=== PATIENT | female | born 1960 | race Caucasian/White ===

== ENCOUNTER 2021-05-26 12:00 | Emergency (ER) | payer SELFPAY ==
[2021-05-26 12:01] VITALS: BP 134/73; PULSE 74; RESP 16; TEMP 36.1; O2SAT 98; BMI 32.2
--- NOTE | 2021-05-26 12:14 | CT_ITS ---
STUDY: CT ABDOMEN AND PELVIS WITH CONTRAST REASON FOR EXAM: Female, 60 years old. Lower abdominal pain. RADIATION DOSAGE (If Supplied By Facility): CTDIvol = ( 16.62 ) mGy, DLP = ( 1043.20 ) mGycm TECHNIQUE: Transaxial images were obtained from the dome of the diaphragm to the symphysis pubis without oral contrast. IV 100mL Isovue-370 was administered. Sagittal and coronal images were reconstructed. Individualized dose optimization techniques were used for this CT. COMPARISON: None. FINDINGS: The visualized lung bases are unremarkable. The visualized portions of the heart are within normal limits. Mild fatty infiltration of the liver. No focal lesion is seen in the liver. Normal gallbladder and extrahepatic biliary system. Normal spleen. Normal pancreas. Normal bilateral adrenal glands. Normal right kidney. Normal left kidney. Normal visualized stomach. Normal caliber small bowel loops. Duodenal diverticulum measuring about 3 cm. Short segment of inflammatory changes and thickening of the sigmoid colon with adjacent diverticula consistent with acute diverticulitis. No evidence of drainable abscess. No free air is seen. The appendix is not definitely identified. There is diffuse atherosclerotic calcification of the abdominal aorta with elongation and tortuosity, but without a demonstrated aneurysm. Normal inferior vena cava. Normal retroperitoneum. Normal urinary bladder. Small umbilical hernia with mild bulging of part of the transverse colon. Small left ventral hernia containing fat. CT/Abdomen/Pelvis W IV Cont ONLY IMPRESSION: 1. Focal acute diverticulitis of the sigmoid colon. No drainable abscess is seen. 2. Small umbilical hernia with mild bulging of part of the transverse colon. 3. Duodenal diverticulum. Electronically Signed: Tae Hutchins, at 13:34 EST Tel , Service support ,
--- NOTE | 2021-05-26 12:15 | ED.VIS.GI ---
HPI HPI - GI History of Present Illness Chief Complaint: Abd Pain Informant: patient Narrative Narrative: Patient presents with lower abdominal cramping pain that started last evening. She has had nausea with it when it is bad but is not nauseated now. No vomiting. She had some soft bowel movements yesterday but no blood. No fevers or chills. Patient has been having intermittent abdominal symptoms for 6 months. But they vary dramatically. She will occasionally have nausea occasionally constipation occasionally diarrhea occasionally cramps. However she normally does not get this lower abdominal cramping is bad as she had it. This did occur after a meal of pork sauerkraut and a lot of food for New Year's. It still waxing and waning but not overall improving. Her concern is that she had perforated diverticulum 19 years ago. This required emergency surgery. She had an ostomy of it for about 4 months. It has been a while since she had a colonoscopy. Nothing specifically makes symptoms better or worse. [facility] Medical History (Updated 05/26/21 @ 13:[address] Carlos Atwood MD) Diabetes High cholesterol HTN (hypertension) Home Medications metoprolol tartrate 100 mg PO BID 02/28/14 [History Last Taken Unknown] amoxicillin-pot clavulanate [Augmentin] 1 tab PO BID #20 tab 05/26/21 [Rx Last Taken Unknown] aspirin 81 mg PO DAILY 05/26/21 [History Last Taken Unknown] losartan 25 mg PO DAILY 05/26/21 [History Last Taken Unknown] metformin 500 mg PO DAILY 05/26/21 [History Last Taken Unknown] ondansetron 4 mg PO Q8H PRN #10 tab 05/26/21 [Rx Last Taken Unknown] rosuvastatin 20 mg PO DAILY 05/26/21 [History Last Taken Unknown] Allergy/AdvReac Type Severity Reaction Status Date / Time No Known Allergies Allergy Verified 05/26/21 12:04 Surgical History (Updated 05/26/21 @ 12:28 by Patricio Bowens) History of colon surgery Social History Smoking Status: Never smoker ROS ROS ED Constitutional Constitutional ED: Denies chills or fever(s) ENT ENT ED: Denies rhinorrhea or sore throat Cardiovascular Cardiovascular: Denies chest pain or palpitations Respiratory/Chest Respiratory/Chest: Denies cough, dyspnea or sputum Gastrointestinal Gastrointestinal: Reports abdominal pain, diarrhea and nausea; Denies constipation, melena or vomiting Genitourinary Genitourinary ED: Denies dysuria, hematuria or urinary frequency Musculoskeletal Musculoskeletal: Denies back pain Integumentary Denies rash Neurologic Neurologic: Denies headache(s) or weakness Psychiatric Psychiatric: Reports depression Endocrine Endocrinology: Denies polydipsia or polyuria Hematologic/Lymphatic Hematologic/Lymphatic: Reports other Details: Patient is on no blood thinners. No aspirin. ; Denies easy bleeding or easy bruising Allergic/Immunologic Allergic/Immunologic ED: Denies mouth swelling or urticaria EXAM Physical Exam Const Vital Signs: 05/26/21 12:01 05/26/21 12:53 Temperature 97.0 F L Temperature Source Temporal Pulse Rate 74 89 Respiratory Rate 16 16 Blood Pressure 134/73 H 120/80 Blood Pressure Mean 93 93 Pulse Ox 98 97 Oxygen Delivery Method Room Air Room Air Positive well nourished and well developed General Appearance ED: well developed and NAD HEENT Reports moist mucous membranes Eyes General Eye ED: Negative for pale conjunctiva or scleral icterus Neck no JVD Resp normal respiratory effort and clear to auscultation bilaterally Cardio regular rate and regular rhythm GI non-distended GI Narrative: Very minimal tenderness across lower abdomen. Hard to define one side versus the other versus midline. This is very mild. There is no guarding. No rebound. No mass felt. Auscultation: normoactive bowel sounds Palpation: soft Back/Spine no CVA tenderness Extremity full ROM General Extremety ED: Negative for tenderness Neuro Sensorium / Orientation: alert Psych mental status grossly normal Skin no wounds General Skin Exam: Negative for jaundice Lesions: no lesions Rashes: no rashes MDM MDM MDM Narrative Medical decision making narrative: Patient's urine is clean. CBC is actually normal. Electrolytes show no marked abnormalities. BUN to creatinine ratio is minimally elevated. She was given some IV fluids. Glucose is minimally elevated at 128. CT scan did show a focal area of diverticulitis without perforation or abscess. Patient will be started on Augmentin as monotherapy. But I also talked with her about very bland diet. She should go to liquids here for a day or 2. And then very slowly increase the diet. If she develops worsening pain, fevers, vomiting or other concerns she should return. She states she thinks Tylenol will manage her pain just fine. Lab Data Attestation: I reviewed the patient's lab results. Labs: Laboratory Results - last 24 hr 05/26/21 05/26/21 05/26/21 12:20 12:45 12:45 WBC 9.6 RBC 4.31 Hgb 13.4 Hct 39.9 MCV 92.6 MCH 31.1 MCHC 33.6 RDW Std Deviation 39.8 RDW Coeff of Mitchel 11.7 Plt Count 265 MPV 9.2 Immature Gran % (Auto) 0.100 Neut % (Auto) 73.9 H Lymph % (Auto) 14.8 L Wheeler % (Auto) 10.6 H Eos % (Auto) 0.5 Baso % (Auto) 0.1 Absolute Neuts (auto) 7.1 Absolute Lymphs (auto) 1.42 Nucleated RBC % 0 Sodium 138 Potassium 4.2 Chloride 106 Carbon Dioxide 27.0 Anion Gap 5 BUN 13 Creatinine 0.59 Estim Creat Clear Calc 71.01 Est GFR (MDRD) Af Amer 132 Est GFR (MDRD) Non-Af 109 BUN/Creatinine Ratio 22.0 H Glucose 128 H Calcium 9.5 Urine Color Straw Urine Clarity Clear Urine pH 6.0 Ur Specific [place] 1.010 Urine Protein Negative Urine Glucose (UA) Normal Urine Ketones Negative Urine Occult Blood 10 H Urine Nitrite Negative Urine Bilirubin Negative Urine Urobilinogen Normal Ur Leukocyte Esterase Negative Urine RBC 0 SEEN Urine WBC 0 SEEN Ur Squamous Epith Cells 0-5 SEEN Urine Bacteria 0 SEEN Urine Mucus 0 SEEN Radiography Diagnostic Testing: Clinical Impression(s) from Imaging Studies Abdomen/Pelvis CT 05/26/21 12:14 IMPRESSION: 1. Focal acute diverticulitis of the sigmoid colon. No drainable abscess is seen. 2. Small umbilical hernia with mild bulging of part of the transverse colon. 3. Duodenal diverticulum. Electronically Signed: Tae Hutchins, at 13:34 EST Tel , Service support , Discharge Plan Triage Chief Complaint: Abd Pain ED Provider: Carlos tAwood Dx/Rx/DC Orders Clinical Impression: Acute diverticulitis Instructions: ED Diverticulitis Prescriptions: New amoxicillin-pot clavulanate [Augmentin] 875-125 mg tablet 1 tab PO BID Qty: 20 RF: 0 ondansetron 4 mg tablet,disintegrating 4 mg PO Q8H PRN (Reason: nausea and vomiting) Qty: 10 RF: 0 No Action metoprolol tartrate 100 MG tablet 100 mg PO BID RF: 0 aspirin 81 mg tablet,delayed release (DR/EC) 81 mg PO DAILY RF: 0 metformin 500 mg tablet 500 mg PO DAILY RF: 0 losartan 25 mg tablet 25 mg PO DAILY RF: 0 rosuvastatin 20 mg tablet 20 mg PO DAILY RF: 0 Primary Care Provider: Ranjeet Lira Referrals: Ranjeet Lira DO [Primary Care Provider] - 3-5 Days if not improving Disposition Disposition: Home, Self Care
[2021-05-26 12:52] LABS: Absolute Lymphocyte Count 1.42 X10^3/uL (0.83-4.51); Absolute Neutrophil Count 7.1 X10^3/uL (2.0-7.7); Basophil# 0.01 X10^3/uL; Basophil% 0.1 % (0-1); Eosinophil# 0.05 X10^3/uL; Eosinophils% 0.5 % (0-5); Hematocrit 39.9 % (37-47); Hemoglobin 13.4 g/dL (12.0-15.0); Lymphocyte # 1.42 X10^3/ul (0.83-4.51); Lymphocyte % 14.8 % (19-41); Mean Corp Hgb Conc 33.6 g/dL (32-36); Mean Corpuscular Hgb 31.1 pg (27.0-32.0); Mean Corpuscular Volume 92.6 fL (81-99); Mean Platelet Vol. 9.2 fl (6.2-12.0); Monocyte# 1.02 X10^3/uL; Monocyte% 10.6 % (0-10); NRBC Flagged by Analyzer 0 % (0-5); Neutrophil # 7.07 X10^3/uL (2.7-7.7); Neutrophil % 73.9 % (47-70); Platelet Count 265 K/mm3 (150-450); RBC Distribution Width CV 11.7 % (11.6-14.6); RBC Distribution Width SD 39.8 fl (35.1-43.9); Red Blood Count 4.31 M/mm3 (4.2-5.4); White Blood Count 9.6 K/mm3 (4.4-11.0)
[2021-05-26 12:53] VITALS: BP 120/80; PULSE 89; RESP 16; O2SAT 97
[2021-05-26 12:56] LABS: Bacteria 0 SEEN /hpf (None Seen); Mucous, Urine 0 SEEN /hpf (<or=2+); Red Blood Cells-Urine 0 SEEN /hpf (0-5); White Blood Cells 0 SEEN /hpf (0-5)
[2021-05-26 12:58] LABS: Color, Urine Straw (Yellow); Glucose, Dipstick Normal (Normal); Ketone-Dipstick Negative (Negative); Leukocyte Esterase-Dipstick Negative /ul (Negative); Nitrite-Dipstick Negative (Negative); Occult Blood-Urine 10 /ul (Negative); Protein-Dipstick Negative (Negative); Urine Bilirubin Dipstick Negative (Negative); Urine Clarity Clear (Clear); Urine Urobilinogen Normal (Normal)
[2021-05-26 13:05] LABS: Squamous Epithelial Cells - UA 0-5 SEEN /hpf (5-10)
[2021-05-26 13:07] LABS: Anion Gap 5 (5-15); BUN 13 mg/dL (7-18); Calcium,Total 9.5 mg/dL (8.5-10.1); Chloride 106 mmol/L (98-107); Creatinine, Serum 0.59 mg/dL (0.55-1.02); EST Glomerular Filtration Rate 109 mL/min (>60); Est Glom Filt Rate - Afr Amer 132 mL/min (>60); Estimated Creatinine Clearance 71.01 ml/min; Glucose 128 mg/dL (74-106); Potassium 4.2 mmol/L (3.5-5.1); Sodium Level 138 mmol/L (136-145)
[2021-05-26 14:15] VITALS: BP 126/73; PULSE 70; RESP 16; O2SAT 98
[2021-05-26] MEDS: Amox/Clavulanate 875 MG Tablet PO (14:35)
== END 2021-05-26 14:36 | disposition home or self-care (01) ==
PROVIDERS: Emergency Provider Emergency Medicine; PCP Preventive Medicine Occupational Medicine
DX: K57.32 Diverticulitis of large intestine without perforation or abscess without bleeding (principal); E11.9 Type 2 diabetes mellitus without complications; E78.00 Pure hypercholesterolemia, unspecified; I10 Essential (primary) hypertension; Z79.82 Long term (current) use of aspirin; Z79.899 Other long term (current) drug therapy; Z79.84 Long term (current) use of oral hypoglycemic drugs
CPT/HCPCS: 74177; 80048; 81001; 85025; 96360; 99283; J7030; Q9967; A4216

== ENCOUNTER 2024-07-01 07:34 | Day surgery (SDC) | payer MEDICARE, SELFPAY ==
--- NOTE | 2024-06-30 13:17 | PAT.ANE_ITS ---
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 When Was Last Pacemaker Check QUESTION #4 FULL TEXT: You/Your Family Experience fever (hyperthermia) with Anesthesia Last Oral Intake Last Oral intake: Last Oral Intake NPO since Meds taken in AM with sips of water? 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 Female Yes 06/30/24 10:29 HX of Motion Sickness No 06/30/24 10:29 HX of N/V After Surgery No 06/30/24 10:29 Non-Smoker Yes 06/30/24 10:29 Duration of Surgery greater No 06/30/24 10:29 than 60 minutes Number of Risk Factors 2 06/30/24 10:29 PONV Score Moderate Risk 06/30/24 10:29 Height & Weight Height & Weight: Anesthesia: Height & Weight Height 5 ft 03/25/24 10:50 Respiratory Assessment Respiratory Assessment - racking machine operator: Respiratory Tract Infection Hx - racking machine operator Hx Respiratory Tract Infection No 06/30/24 10:29 STOP Sleep Apnea STOP Sleep Apnea - racking machine operator: STOP Sleep Apnea - racking machine operator Hx Hypertension Yes: CONTROLLED WITH MED 06/30/24 10:29 Hx Sleep Apnea Yes 06/30/24 10:29 CPAP Yes: NONCOMPLIANT FOR 8-10 06/30/24 10:29 YRS BIPAP No 06/30/24 10:29 Do you snore loudly (louder than talking or can be heard Do you often feel tired/ fatigued/ sleepy during daytime? Has anyone observed you stop breathing during sleep? STOP Results Positive 06/30/24 10:29 QUESTION #5 FULL TEXT : Do you snore loudly (louder than talking or can be heard through closed doors)? 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 Specify any problems Hx of Preganancy in last 3 No 06/30/24 10:29 Months Nurse Filling Out Transfusion DSCHRIBER 06/30/24 10:29 & Questions: Date: 06/30/24 06/30/24 10:29 Time: 10:32 06/30/24 10:29 Patient unable to answer at this time (ie. confused, unrespo /Reproduction History /Reproductive History - racking machine operator: /Reproductive Hx- racking machine operator Hx Now No 06/30/24 10:29 Gestational Age (in weeks): EDC: Hx Hx Para Hx Section SAB No 06/30/24 10:29 [facility] Medical History (Updated 06/30/24 @ 10:42 by Quynh Slade) Wears glasses Wears dentures Post-menopausal Depression Back pain History of diverticulitis CPAP (continuous positive airway pressure) dependence Non-smoker Shortness of breath on exertion Leg cramps History of stress test History of irregular heartbeat Hx of fracture of arm Family history of malignant neoplasm of colon in father Personal history of colonic polyps Encounter for colonoscopy following colon polyp removal Umbilical hernia Hyperlipemia Hypertension High cholesterol Diabetes Home Medications ?Medication ?Instructions ?Recorded ?Last Taken ?Type metformin 500 mg tablet 500 mg PO BID 05/26/2106/29 History blood-glucose meter (Accu-Chek #1 ea 09/08/23 Unknown Rx Guide Glucose Meter) psyllium husk 0.4 gram capsule 0.4 g PO BID 09/08/23 U nknown History (Daily Fiber) blood sugar diagnostic (Accu-Chek #100 ea 03/24/24 Unk nown Rx Guide test strips) metoprolol succinate 100 mg 100 mg PO BID #180 tabs 10 /30/24 Unknown Rx tablet,extended release 24 hr rosuvastatin 20 mg tablet 20 mg PO DAILY #90 tabs 02/25 Unknown Rx Allergy/AdvReac Type Severity Reaction Status Date / Time No Known Allergies Allergy Verified 06/30/24 10:26 Family History (System 06/29/24 @ 05:54 by Shonna Paredes) Father Colon cancer, Onset Age: 58 Epilepsy Mother Anesthesia complication CVA (cerebral vascular accident) Heart disease Asthma Osteoporosis Brother Asthma Diabetes Hypertension Hyperlipidemia Sister Diabetes Hypertension Hyperlipidemia Sister Diabetes Hypertension Hyperlipidemia Sister Thyroid disorder Surgical History (Updated 06/30/24 @ 10:42 by Quynh Slade) Hx of right cataract extraction Hx of left cataract extraction Hx of colonoscopy History of colostomy reversal Hx of colectomy H/O cervical polypectomy H/O umbilical hernia repair Social History (System 06/29/24 @ 05:54 by Shonna Paredes) adopted: No household members: none current occupational status: employed current occupation: [employer] at [employer] pets and animals: No Smoking Status: Never smoker Electronic Cigarette Use: not used how long ago did patient quit smoking: rare use as teenager alcohol intake: current alcohol intake frequency: holidays/special occasions only substance use type: does not use caffeine: Yes (2) Type: carbonated beverages and tea frequency: 1-2 times per week do you feel safe at home: Yes Audit: Pertinent Findings Pertinent Findings EKG Perinent findings: 03/24/2024 sinus rhythm 71 bpm low voltage precordial leads anterior infarct age undetermined negative T waves in the anterior septal leads Additional pertinent findings: The 03/24/2024 EKG was abnormal with negative T waves no old EKG to compare should evaluate on day of procedure make sure patient is not experiencing any symptoms of cardiac ischemia or symptoms that has reduced her physical activity Recommendation Anesthesia Recommendation Anesthesia recommendation: OPTIMIZED for anesthesia
[2024-07-01] VITALS (8 sets, daily range): BP systolic 99–116; BP diastolic 56–84; PULSE 70–91; RESP 16–18; TEMP 36.6–37.1; O2SAT 94–97; BMI 30.5
--- NOTE | 2024-07-01 08:01 | PCM.HP.STD ---
[facility] - General General Date of Admission: 07/01/24 Date of Service: 07/01/24 Chief Complaint: Personal history of polyps HPI Narrative DAXA THAKUR, is a 63 F who presents today for endoscopic evaluation and surveillance of history of colon polyps. She had a colonoscopy approximately 5 years ago and oral pill and it was normal at that time. Prior colonoscopies did show polyps. At this time she is stable with no complaints. [facility] Medical History Wears glasses Wears dentures Post-menopausal Depression Back pain History of diverticulitis CPAP (continuous positive airway pressure) dependence Non-smoker Shortness of breath on exertion Leg cramps History of stress test History of irregular heartbeat Hx of fracture of arm Family history of malignant neoplasm of colon in father Personal history of colonic polyps Encounter for colonoscopy following colon polyp removal Umbilical hernia Hyperlipemia Hypertension High cholesterol Diabetes Home Medications ?Medication ?Instructions ?Recorded ?Last Taken ?Type metformin 500 mg tablet 500 mg PO BID 05/26/21 06/29/24 History blood-glucose meter (Accu-Chek #1 ea 09/08/23 Unknown Rx Guide Glucose Meter) psyllium husk 0.4 gram capsule 0.4 g PO BID 09/08/23 Unknown History (Daily Fiber) blood sugar diagnostic (Accu-Chek #100 ea 03/24/24 Unknown Rx Guide test strips) metoprolol succinate 100 mg 100 mg PO BID #180 tabs 03/24/24 07/01/24 Rx tablet,extended release 24 hr rosuvastatin 20 mg tablet 20 mg PO DAILY #90 tabs 03/24/24 06/30/24 Rx Allergy/AdvReac Type Severity Reaction Status Date / Time No Known Allergies Allergy Verified 07/01/24 07:54 Family History Father Colon cancer, Onset Age: 58 Epilepsy Mother Anesthesia complication CVA (cerebral vascular accident) Heart disease Asthma Osteoporosis Brother Asthma Diabetes Hypertension Hyperlipidemia Sister Diabetes Hypertension Hyperlipidemia Sister Diabetes Hypertension Hyperlipidemia Sister Thyroid disorder Surgical History Hx of right cataract extraction Hx of left cataract extraction Hx of colonoscopy History of colostomy reversal Hx of colectomy H/O cervical polypectomy H/O umbilical hernia repair Social History adopted: No household members: none current occupational status: employed 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 [email or web address] pets and animals: No Smoking Status: Never smoker Electronic Cigarette Use: not used how long ago did patient quit smoking: rare use as teenager alcohol intake: current alcohol intake frequency: holidays/special occasions only substance use type: does not use caffeine: Yes (2) Type: carbonated beverages and tea frequency: 1-2 times per week do you feel safe at home: Yes ROS Constitutional Constitutional: Denies fatigue, fever(s), poor appetite, weight gain or weight loss Gastrointestinal Gastrointestinal: Denies belching, bloating, change in bowel habits, change in stool character, chewing difficulty, coffee ground emesis, constipation, cramping, diarrhea, dyspepsia, dysphagia, early satiety, excessive flatus, fecal incontinence, heartburn, hematemesis, hematochezia, hemorrhoids, loose stools, melena, nausea, odynophagia, rectal bleeding, tenesmus, vomiting or weight changes Physical Exam Const alert, oriented x3, no apparent distress and healthy appearing General Appearance: cooperative GI normal to inspection, nondistended, normoactive bowel sounds, soft to palpation, non-tender and non-distended Percussion: normal to percussion Rectal Exam: deferred Assessment & Plan Assessment/Plan (1) Encounter for screening for malignant neoplasm of colon: PLAN: She was explained alternatives to risk benefits include not withstanding bleeding, infection, sepsis, perforation, need for return to . She will have an ASA of 3.
--- NOTE | 2024-07-01 08:31 | PRE.ANES_ITS ---
ASA Classification* ASA Classification ASA Classification: 3 Assessment & Plan Anesthesia* Anesthesia Assessment Anesthesia Assessment: Discussed sedation and/or anesthesia options, risks, benefits, and alternatives with patient/parents/legal guardian/POA. Questions invited. The patient/parents/legal guardian/POA seems to understand and agrees to proceed with anesthesia plan. Reviewed the physical assessment, medical history, allergy history and patient home medications list prior to surgery/procedure/anesthetic and documented any changes. Performed airway and anesthesia risk assessments. Anesthesia Type Anesthesia Type: MAC History Source History Obtained from:: Patient and Chart Anesthesia Focused Assessment* Temperature: 97.8 F Pulse Rate: 91 Blood Pressure: 116/84 Respiratory Rate: 16 Pulse Ox: 97 Oxygen Delivery Method: Room Air Airway Assessment Mouth opens: >3 cm Mallampati Score: II Teeth Condition: Dentures and Full Neck Range of motion (ROM): Full ROM Focused Labs Anesthesia Preop lab: CBC WBC 6.5 K/mm3 (4.4-11.0) 03/23/24 08:04 03/23/24 RBC 4.33 M/mm3 (4.2-5.4) 03/23/24 08:04 03/23/24 Hgb 13.6 g/dL (12.0-15.0) 03/23/24 08:04 03/23/24 Hct 41.9 % (37-47) 03/23/24 08:04 03/23/24 Plt Count 231 K/mm3 (150-450) 03/23/24 08:04 03/23/24 CHEMISTRY Potassium 4.1 mmol/L (3.5-5.1) 03/23/24 08:04 03/23/24 Sodium 138 mmol/L (136-145) 03/23/24 08:04 03/23/24 BUN 17 mg/dL (7-18) 03/23/24 08:04 03/23/24 Creatinine 0.71 mg/dL (0.55-1.02) 03/23/24 08:04 03/23/24 Glucose 143 mg/dL (74-106) H 03/23/24 08:04 03/23/24 TSH 0.957 uIU/mL (0.358-3.740) 03/23/24 08:04 02/24 02/16 COAG Pre-Assessment Diagnosis/Proposed Procedure Planned Operative Procedure(s): CSCOPE OA Anesthesia History 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 When Was Last Pacemaker Check QUESTION #4 FULL TEXT: You/Your Family Experience fever (hyperthermia) with Anesthesia Last Oral Intake Last Oral intake: Last Oral Intake NPO since 04:00 07/01/24 08:02 Meds taken in AM with sips of water? Meds patient instructed to take am of surgery PONV PONV - liquefied petroleum gasfitter: PONV - liquefied petroleum gasfitter Female Yes 06/30/24 10:29 HX of Motion Sickness No 06/30/24 10:29 HX of N/V After Surgery No 06/30/24 10:29 Non-Smoker Yes 06/30/24 10:29 Duration of Surgery greater No 06/30/24 10:29 than 60 minutes Number of Risk Factors 2 06/30/24 10:29 PONV Score Moderate Risk 06/30/24 10:29 Height & Weight Height & Weight: Anesthesia: Height & Weight Height 5 ft 07/01/24 08:02 Weight: 71 kg 07/01/24 08:02 Body Mass Index (BMI) 30.5 07/01/24 08:02 Respiratory Assessment Respiratory Assessment - liquefied petroleum gasfitter: Respiratory Tract Infection Hx - liquefied petroleum gasfitter Hx Respiratory Tract Infection No 06/30/24 10:29 STOP Sleep Apnea STOP Sleep Apnea - liquefied petroleum gasfitter: STOP Sleep Apnea - liquefied petroleum gasfitter Hx Hypertension Yes: CONTROLLED WITH MED 06/30/24 10:29 Hx Sleep Apnea Yes 06/30/24 10:29 CPAP Yes: NONCOMPLIANT FOR 8-10 06/30/24 10:29 YRS BIPAP No 06/30/24 10:29 Do you snore loudly (louder than talking or can be heard Do you often feel tired/ fatigued/ sleepy during daytime? Has anyone observed you stop breathing during sleep? STOP Results Positive 06/30/24 10:29 QUESTION #5 FULL TEXT : Do you snore loudly (louder than talking or can be heard through closed doors)? 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 Specify any problems Hx of Preganancy in last 3 No 06/30/24 10:29 Months Nurse Filling Out Transfusion DSCHRIBER 06/30/24 10:29 & Questions: Date: 06/30/24 06/30/24 10:29 Time: 10:32 06/30/24 10:29 Patient unable to answer at this time (ie. confused, unrespo /Reproduction History /Reproductive History - liquefied petroleum gasfitter: /Reproductive Hx- liquefied petroleum gasfitter Hx Now No 06/30/24 10:29 Gestational Age (in weeks): EDC: Hx Hx Para Hx Section SAB No 06/30/24 10:29 PFS Medical History Wears glasses Wears dentures Post-menopausal Depression Back pain History of diverticulitis CPAP (continuous positive airway pressure) dependence Non-smoker Shortness of breath on exertion Leg cramps History of stress test History of irregular heartbeat Hx of fracture of arm Family history of malignant neoplasm of colon in father Personal history of colonic polyps Encounter for colonoscopy following colon polyp removal Umbilical hernia Hyperlipemia Hypertension High cholesterol Diabetes Home Medications ?Medication ?Instructions ?Recorded ?Last Taken ?Type metformin 500 mg tablet 500 mg PO BID 05/26/2106/29 History blood-glucose meter (Accu-Chek #1 ea 09/08/23 Unknown Rx Guide Glucose Meter) psyllium husk 0.4 gram capsule 0.4 g PO BID 09/08/23 U nknown History (Daily Fiber) blood sugar diagnostic (Accu-Chek #100 ea 03/24/24 Unk nown Rx Guide test strips) metoprolol succinate 100 mg 100 mg PO BID #180 tabs 07/01/24 Rx tablet,extended release 24 hr rosuvastatin 20 mg tablet 20 mg PO DAILY #90 tabs 02/2506/30/24 Rx Allergy/AdvReac Type Severity Reaction Status Date / Time No Known Allergies Allergy Verified 07/01/24 07:54 Family History Father Colon cancer, Onset Age: 58 Epilepsy Mother Anesthesia complication CVA (cerebral vascular accident) Heart disease Asthma Osteoporosis Brother Asthma Diabetes Hypertension Hyperlipidemia Sister Diabetes Hypertension Hyperlipidemia Sister Diabetes Hypertension Hyperlipidemia Sister Thyroid disorder Surgical History Hx of right cataract extraction Hx of left cataract extraction Hx of colonoscopy History of colostomy reversal Hx of colectomy H/O cervical polypectomy H/O umbilical hernia repair Social History adopted: No household members: none current occupational status: employed 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
--- NOTE | 2024-07-01 09:11 | OP.CCLET_ITS ---
07/01/2024 Sulema Cooper Md Re : Colonoscopy procedure for Betty Arrieta Dear Allison This procedure was performed on June. My impressions and recommendations are as follows: Impressions : - Diverticulosis in the recto-sigmoid colon, in the sigmoid colon and in the descending colon. - Patent end-to-end colo-colonic anastomosis, characterized by healthy appearing mucosa. - No specimens collected. Recommendations : - Discharge patient to home. - Resume previous diet. - Continue present medications. - Repeat colonoscopy in 5 years for surveillance. My findings are described in the full procedure note, which is enclosed. If I can be of further assistance, please feel free to contact me at . Sincerely, Emmett Lakhani, 07/01/2024 9:11:14 AM This report has been signed electronically.
--- NOTE | 2024-07-01 09:11 | OP.COLON_ITS ---
Patient Name: Betty Arrieta Procedure Date: 07/01/2024 8:45 AM Date of : 1960 Age: 63 Procedure: Colonoscopy Indications: High risk colon cancer surveillance: Personal history of colonic polyps, Family history of colon cancer in a first-degree relative before age 60 years Providers: Emmett Lakhani DO Medicines: Monitored Anesthesia Care Patient Profile: This is a 63 year old female. Refer to note in patient chart for documentation of history and physical. Last Colonoscopy: 5 years ago. Complications: No immediate complications. Procedure: Pre-Anesthesia Assessment: - Prior to the procedure, a History and Physical was performed, and patient medications and allergies were reviewed. The patient is competent. The risks and benefits of the procedure and the sedation options and risks were discussed with the patient. All questions were answered and informed consent was obtained. Patient identification and proposed procedure were verified by the physician in the pre-procedure area. Mental Status Examination: alert and oriented. Airway Examination: normal oropharyngeal airway and neck mobility. Respiratory Examination: clear to auscultation. CV Examination: normal. Prophylactic Antibiotics: The patient does not require prophylactic antibiotics. Prior Anticoagulants: The patient has taken no anticoagulant or antiplatelet agents except for NSAID medication. ASA Grade Assessment: II - A patient with mild systemic disease. After reviewing the risks and benefits, the patient was deemed in satisfactory condition to undergo the procedure. The anesthesia plan was to use monitored anesthesia care (MAC). Immediately prior to administration of medications, the patient was re-assessed for adequacy to receive sedatives. The heart rate, respiratory rate, oxygen saturations, blood pressure, adequacy of pulmonary ventilation, and response to care were monitored throughout the procedure. The physical status of the patient was re-assessed after the procedure. After I obtained informed consent, the scope was passed under direct vision. Throughout the procedure, the patient's blood pressure, pulse, and oxygen saturations were monitored continuously. The Colonoscope was introduced through the anus and advanced to the cecum, identified by appendiceal orifice and ileocecal valve. The colonoscopy was performed without difficulty. The patient tolerated the procedure well. The quality of the bowel preparation was adequate. The ileocecal valve, appendiceal orifice, and rectum were photographed. Scope In: 8:58:25 AM Scope Withdrawal Time 0 hours 7 minutes 1 second Scope Out: 9:07:03 AM Total Procedure Duration Time 0 hours 8 minutes 38 seconds Findings: The perianal and digital rectal examinations were normal. Multiple small and large-mouthed diverticula were found in the recto-sigmoid colon, sigmoid colon and descending colon. There was evidence of a prior end-to-end colo-colonic anastomosis in the recto-sigmoid colon. This was patent and was characterized by healthy appearing mucosa. Impression: - Diverticulosis in the recto-sigmoid colon, in the sigmoid colon and in the descending colon. - Patent end-to-end colo-colonic anastomosis, characterized by healthy appearing mucosa. - No specimens collected. Recommendation: - Discharge patient to home. - Resume previous diet. - Continue present medications. - Repeat colonoscopy in 5 years for surveillance. Procedure Code(s): --- Professional --- 53013, Colonoscopy, flexible; diagnostic, including collection of specimen(s) by brushing or washing, when performed (separate procedure) CPT copyright 2021 [employer]. All rights reserved. The codes documented in this report are preliminary and upon medical insurance coder review may be revised to meet current compliance requirements. Emmett Lakhani DO 07/01/2024 9:11:14 AM This report has been signed electronically. Number of Addenda: 0 Note Initiated On: 07/01/2024 8:45 AM
--- NOTE | 2024-07-01 09:15 | PCM.POST.ANE ---
Anesthesia: Postop Eval I Current Vital Signs Temperature: 98.3 F Pulse Rate: 74 Blood Pressure: 106/56 Respiratory Rate: 18 Pulse Ox: 96 Oxygen Delivery Method: Room Air Assessment Airway patent: Yes Spontaneous unlabored respirations: Yes Mental status: Awake nausea: No Vomiting: No Anesthesia Complication: No Fluid Hydration Crystalloid volume administer (ml): 10 Total IV fluid infused: 10 Progress Note Anesthesia document: Postop Eval 1 completed: Yes
--- NOTE | 2024-07-01 10:46 | POSTOPAN2_ITS ---
Anesthesia Postop Eval I Sum Postop Eval Completion status Anesthesia document: Postop Eval 1 completed: Yes Anesthesia Postop Eval I Summary Anesthesia Postop Eval I Summary: Anesthesia Postop Eval I: Assessment Summary Airway patent Yes 07/01/24 09:16 AERONAUTICAL RESEARCH [email or web address] Spontaneous unlabored Yes 07/01/24 09:16 AERONAUTICAL RESEARCH ENGINEER.[email or web address] respirations Mental status Awake 07/01/24 09:16 AERONAUTICAL RESEARCH [email or web address] nausea No 07/01/24 09:16 AERONAUTICAL RESEARCH [email or web address] Vomiting No 07/01/24 09:16 AERONAUTICAL RESEARCH [email or web address] Anesthesia Postop Eval I: Fluid Summary Crystalloid volume administer 10 07/01/24 09:16 AERONAUTICAL RESEARCH ENGINEER.[email or web address] (ml) Colloids volume administered ( ml) Blood Product volume administered (ml) Total IV fluid infused 10 07/01/24 09:16 AERONAUTICAL RESEARCH ENGINEER.[email or web address] Anesthesia Postop Eval I: Summary Notes Anesthesia Complication No 07/01/24 09:16 AERONAUTICAL RESEARCH ENGINEER.[email or web address] Anesthesia Complication Comment: Post-operative progress note Anesthesia: Postop Eval II Evaluation Mental status: Awake and Calm Pain Level: 0 nausea: No Vomiting: No
--- NOTE | 2024-07-01 10:46 | PCM.POSTANE2 ---
Anesthesia Postop Eval I Sum Postop Eval Completion status Anesthesia document: Postop Eval 1 completed: Yes Anesthesia Postop Eval I Summary Anesthesia Postop Eval I Summary: Anesthesia Postop Eval I: Assessment Summary Airway patent Yes 07/01/24 09:16 FIELD [email or web address] Spontaneous unlabored Yes 07/01/24 09:16 FIELD [email or web address].[email or web address] respirations Mental status Awake 07/01/24 09:16 FIELD [email or web address] nausea No 07/01/24 09:16 FIELD [email or web address].[email or web address] Vomiting No 07/01/24 09:16 FIELD [email or web address].[email or web address] Anesthesia Postop Eval I: Fluid Summary Crystalloid volume administer 10 07/01/24 09:16 FIELD [email or web address] (ml) Colloids volume administered ( ml) Blood Product volume administered (ml) Total IV fluid infused 10 07/01/24 09:16 FIELD [email or web address].[email or web address] Anesthesia Postop Eval I: Summary Notes Anesthesia Complication No 07/01/24 09:16 FIELD [email or web address].[email or web address] Anesthesia Complication Comment: Post-operative progress note Anesthesia: Postop Eval II Evaluation Mental status: Awake and Calm Pain Level: 0 nausea: No Vomiting: No
[2024-07-01 17:24] LABS: Bedside Glucose 134 mg/dL (74-106)
== END 2024-07-01 10:15 | disposition home or self-care (01) ==
LOC: EN 07:41 → AC 07:44
PROVIDERS: PCP Internal Medicine; Referring Provider Internal Medicine; Visit Provider Internal Medicine Gastroenterology
PROC: 0DJD8ZZ Inspection of Lower Intestinal Tract, Via Natural or Artificial Opening Endoscopic (ICD-10-PCS; CPT 45378; principal; 2024-07-01 08:40)
DX: Z12.11 Encounter for screening for malignant neoplasm of colon (principal); E11.9 Type 2 diabetes mellitus without complications; K57.30 Diverticulosis of large intestine without perforation or abscess without bleeding; E78.00 Pure hypercholesterolemia, unspecified; I10 Essential (primary) hypertension; Z98.0 Intestinal bypass and anastomosis status; Z90.49 Acquired absence of other specified parts of digestive tract; Z79.84 Long term (current) use of oral hypoglycemic drugs; Z79.899 Other long term (current) drug therapy; Z86.0100 Personal history of colon polyps, unspecified; Z80.0 Family history of malignant neoplasm of digestive organs
CPT/HCPCS: 45378; 82962; A4216

== ENCOUNTER → 2024-07-14 | Outpatient (CLI) | payer MEDICARE, SELFPAY ==
--- NOTE | 2024-07-14 09:54 | BD_ITS ---
PROCEDURE: DEXA BONE DENSITY STUDY REASON FOR EXAM: F, age 63 y/o . Postmenopausal. TECHNIQUE: DEXA scan of the lumbar spine and both hips. COMPARISON: None. FINDINGS: T-SCORES Lumbar spine: Bone mineral density measures 0.696 grams/centimeter sq. T-score measures -3.2 and Z-score measures -1.4. Left hip: The left femoral neck bone mineral density measures 0.551 grams/centimeter sq. T-score measures -2.7 and Z-score measures -1.1. Total bone mineral density of the left hip measures 0.754 grams/centimeter sq. T-score measures -1.5 and Z-score measures -0.3. Right hip: The right femoral neck bone mineral density measures 0.533 grams/centimeter sq. T-score measures -2.8 and Z-score measures -1.3. Total bone mineral density of the right hip measures 0.754 grams/centimeter sq. T-score measures -1.5 and Z-score measures -0.3. Patient demonstrates osteoporosis of the lumbar spine and both hips. FRAX* Results: 10 Year Probability of Fracture: Hip Fracture(1): 23% Major Osteoporotic Fracture(2): 5.6% *FRAX is a trademark of the [employer]'s [employer] for Metabolic Bone Disease, World Health Organization (WHO) Collaborating [employer]. 1-The 10-year probability of fracture may be lower than reported if the patient has received treatment. 2-Major Osteoporotic Fracture: Clinical Spine, Forearm, Hip or Shoulder. The T-scores are also available for review on the [facility] PACS or by accessing the [facility] electronic medical record. BD/Dexa Bone Density Study IMPRESSION: OSTEOPOROSIS. Reading Location: [id number]
== END | disposition home or self-care (01) ==
PROVIDERS: PCP Internal Medicine; Referring Provider Internal Medicine; Visit Provider Internal Medicine
DX: Z13.820 Encounter for screening for osteoporosis (principal); Z78.0 Asymptomatic menopausal state
CPT/HCPCS: 77080

== ENCOUNTER → 2024-09-22 | Outpatient (CLI) | payer MEDICARE, SELFPAY ==
[2024-09-22 13:33] LABS: Vitamin D,25 Hydroxy 14.5 ng/mL (30-100)
== END | disposition home or self-care (01) ==
LOC: BIMLAB 09:37
PROVIDERS: PCP Internal Medicine; Referring Provider Internal Medicine; Visit Provider Internal Medicine
DX: M81.0 Age-related osteoporosis without current pathological fracture (principal)
CPT/HCPCS: 36415; 82306

== ENCOUNTER → 2024-10-06 | Outpatient (CLI) | payer MEDICARE, SELFPAY ==
--- NOTE | 2024-10-06 12:00 | BI_ITS ---
EXAM: SCRN MAMM (CAD)W/CURLY BILAT 10/06/2024 CLINICAL HISTORY: F, Age 64 y/o , SCREENING TECHNIQUE: Bilateral screening digital breast tomosynthesis with 2D and 3D images. Computer aided detection. COMPARISON: Prior exam(s) dated 06/12/2015. FINDINGS: TISSUE DENSITY: The breast tissue is almost entirely fatty. Bilateral Breast Mammographic Findings: No significant masses, calcifications or other abnormalities are identified. BI/SCRN MAMM (CAD)W/CURLY BILAT IMPRESSION: Right Breast: BIRADS 1 NEGATIVE. Left Breast: BIRADS 1 NEGATIVE. OVERALL FINAL ASSESSMENT: BIRADS 1 NEGATIVE. RECOMMENDATION: Routine annual follow-up in 1 Year A letter with findings and recommendations will be mailed to the patient. Reading Location: [id number]
== END | disposition home or self-care (01) ==
PROVIDERS: PCP Internal Medicine; Referring Provider Internal Medicine; Visit Provider Internal Medicine
DX: Z12.31 Encounter for screening mammogram for malignant neoplasm of breast (principal)
CPT/HCPCS: 77063; 77067

== ENCOUNTER → 2025-04-27 | Outpatient (CLI) | payer MEDICARE, SELFPAY ==
[2025-04-27 13:54] LABS: Vitamin D,25 Hydroxy 31.7 ng/mL (30-100)
== END | disposition home or self-care (01) ==
LOC: LAB 12:31
PROVIDERS: PCP Internal Medicine; Referring Provider Internal Medicine; Visit Provider Internal Medicine
DX: M81.0 Age-related osteoporosis without current pathological fracture (principal)
CPT/HCPCS: 36415; 82306